=== PATIENT | female | born 1955 | race Caucasian/White ===

== ENCOUNTER → 2019-01-10 | Outpatient (CLI) | payer OTHER ==
[~2019-01-10] MED LIST: APIGENIN PO; ASCO500T7 PO; CHOL2000 PO; GENI30TA PO; TURM538C PO; UBID100C41 PO; WILL BRING LIST; [UNRECOGNIZED DRUG - OTHER] PO; [UNRECOGNIZED DRUG - OTHER] PO; [UNRECOGNIZED DRUG - OTHER] PO; [UNRECOGNIZED DRUG - OTHER] PO; [UNRECOGNIZED DRUG - OTHER] PO
[2019-01-10 16:54] LABS: INTERNATIONAL NORMALIZED RATIO 0.97 (0.93-1.1); PROTHROMBIN TIME 10.2 Seconds (9.6-11.5)
== END | disposition home or self-care (01) ==
LOC: STAR 15:08
PROVIDERS: ATTEND Specialist
DX: Z01.818 Encounter for other preprocedural examination (principal); C54.1 Malignant neoplasm of endometrium
CPT/HCPCS: 36415; 71046; 85610; 85730; 93005

== ENCOUNTER 2019-01-14 10:14 | Observation (INO) | payer OTHER ==
[~2019-01-14] VITALS: Ht 160 cm; Wt 64.7 kg
[~2019-01-14 10:14] MED LIST changes: -APIGENIN PO; -ASCO500T7 PO; +BUPIVACAINE/PF 0.25% ONE; -CHOL2000 PO; -GENI30TA PO; +INDOCYANINE GREEN 25 MG VIAL ONE; -TURM538C PO; -UBID100C41 PO; -[UNRECOGNIZED DRUG - OTHER] PO; -[UNRECOGNIZED DRUG - OTHER] PO; -[UNRECOGNIZED DRUG - OTHER] PO; -[UNRECOGNIZED DRUG - OTHER] PO; -[UNRECOGNIZED DRUG - OTHER] PO
[2019-01-14] MEDS ORDERED: LACTATED RINGERS 1,000 ML IV SCH (10:42)
[2019-01-14] MEDS ORDERED: APIGENIN PO (10:58)
[2019-01-14] MEDS ORDERED: [UNRECOGNIZED DRUG - OTHER] PO (10:58)
[2019-01-14] MEDS ORDERED: [UNRECOGNIZED DRUG - OTHER] PO (10:58)
[2019-01-14] MEDS ORDERED: ASCO500T7 PO (10:58)
[2019-01-14] MEDS ORDERED: CHOL2000 PO (10:58)
[2019-01-14] MEDS ORDERED: UBID100C41 PO (10:58)
[2019-01-14] MEDS ORDERED: [UNRECOGNIZED DRUG - OTHER] PO (10:58)
[2019-01-14] MEDS ORDERED: GENI30TA PO (10:58)
[2019-01-14] MEDS ORDERED: [UNRECOGNIZED DRUG - OTHER] PO (10:58)
[2019-01-14] MEDS ORDERED: [UNRECOGNIZED DRUG - OTHER] PO (10:58)
[2019-01-14] MEDS ORDERED: TURM538C PO ×2 (10:58)
[2019-01-14] MEDS ORDERED: SCOPOLAMINE PATCH, 1.5MG PATCH.TD72 TD ONE (13:58)
[2019-01-14] MEDS ORDERED: MIDAZOLAM 1 MG/ML, 2ML ONE (14:08)
[2019-01-14] MEDS ORDERED: FENTANYL PF 250 MCG/5ML ONE ×2 (14:08→15:03)
[2019-01-14] MEDS ORDERED: hydrALAzine 20 MG/ML, 1ML ONE (14:16)
[2019-01-14] MEDS ORDERED: LIDOCAINE 2% 100MG/5ML SYRINGE ONE (14:16)
[2019-01-14] MEDS ORDERED: PROMETHAZINE 25 MG SUPP PR PRN (14:30)
[2019-01-14] MEDS ORDERED: ACETAMINOPHEN 325 MG TABLET PO PRN (14:30)
[2019-01-14] MEDS ORDERED: OXYcodone 5 MG/5 ML ORAL.SOL UDC PO PRN (14:30)
[2019-01-14] MEDS ORDERED: ONDANSETRON ODT 8 MG PO PRN (14:30)
[2019-01-14] MEDS ORDERED: ONDANSETRON 2MG/ML, 2ML IV PRN (14:30)
[2019-01-14] MEDS ORDERED: PROMETHAZINE 25 MG/ML, 1ML IV PRN (14:30)
[2019-01-14] MEDS ORDERED: LORazepam 2 MG/ML, 1ML IVPush PRN (14:30)
[2019-01-14] MEDS ORDERED: MECLIZINE CHEWABLE 25 MG TAB PO PRN (14:30)
[2019-01-14] MEDS ORDERED: SUCCINYLCHOLINE 20 MG/ML, 10ML ONE (15:03)
[2019-01-14] MEDS ORDERED: ROCURONIUM 10MG/ML,5ML ONE (15:03)
[2019-01-14] MEDS ORDERED: ONDANSETRON 2MG/ML, 2ML ONE (15:03)
[2019-01-14] MEDS ORDERED: CEFAZOLIN 1,000 MG ONE (15:03)
[2019-01-14] MEDS ORDERED: DEXAMETHASONE 4 MG/ML, 1ML ONE (15:03)
[2019-01-14] MEDS ORDERED: PROPOFOL 10 MG/ML, 20ML ONE (15:03)
[2019-01-14] MEDS ORDERED: NEOSTIGMINE 1 MG/ML, 10ML ONE (15:03)
[2019-01-14] MEDS ORDERED: GLYCOPYRROLATE 0.2MG/1ML, 5ML ONE (15:03)
[2019-01-14] MEDS ORDERED: SUGAMMADEX 200 MG/2 ML IVPush ONE (15:44)
[2019-01-14] MEDS ORDERED: HYDROmorphone 2 MG/ML, 1ML ONE (16:11)
[2019-01-14] MEDS ORDERED: FENTANYL PF 100 MCG/2ML ONE (16:11)
[2019-01-14] MEDS: HYDROmorphone 2 MG/ML, 1ML IVPush PRN ×3 (16:13→16:35)
[2019-01-14] MEDS: FENTANYL PF 100 MCG/2ML IV PRN ×2 (16:15→16:30)
[2019-01-15] MEDS ORDERED: ONDANSETRON 2MG/ML, 2ML IVPush PRN (01:00)
[2019-01-15] MEDS ORDERED: OXYcodone/APAP 5/325MG TABLET PO PRN (01:00)
[2019-01-15 04:18] VITALS: BP 114/61
[2019-01-15 07:26] VITALS: BP 125/66
== END 2019-01-15 07:45 | disposition home or self-care (01) ==
LOC: OUT 10:14 → 4NOR 18:56 → OUT 22:53
PROVIDERS: ADMIT Specialist; ATTEND Specialist
DX: C54.1 Malignant neoplasm of endometrium (principal)
CPT/HCPCS: 36415; 38571; 38792; 58552; 86850; 86900; 86923; 88112; 88305; 88307; 88309; 88331; 88333; 96374; 96376; G0378; J0330; J0360; J0690; J1100; J1170; J2250; J2405; J2704; J2710; J3010; J3490; J7120; S2900